=== PATIENT | female | born 1990 | race Caucasian/White ===

== ENCOUNTER 2019-04-03 11:55 | Emergency (ER) | payer SELFPAY ==
[2019-04-03] MEDS ORDERED: THIAMINE HCL 100 MG, MULTIVIT INFUSN,ADULT 1,VIT K 10 ML, FOLIC ACID 5 MG in 0.9 % SODI... IV ONE (12:02)
[2019-04-03] MEDS ORDERED: THIAMINE HCL 200 MG/2 ML VIAL ONE (12:04)
[2019-04-03] MEDS ORDERED: 0.9 % SODIUM CHLORIDE 1,000 ML IV ONE (12:04)
--- NOTE | 2019-04-03 12:06 | ED Physician Documentation ---
General Adult - HISTORIAN Historian: patient, parent - HPI Stated Complaint: passed out Chief Complaint: General Adult Additional Information: Patient presents to ED after passing out and hitting her head on toilet. Patient's boyfriend states they had been drinking a lot most of the night, with last drink around 0300. When patient got up around 1130 she passed out in the bathroom striking her head on the toilet. Patient states she does not remember the incident. Patient was ambulatory after the incident. Onset: hours (2) Severity: mild - ROS CONST: no problems EYES/ENT: none CVS/RESP: none GI/: none MS/SKIN/LYMPH: none NEURO/PSYCH: headache - PAST HX Past History: none Other History: none Surgeries/Procedures: none Allergies/Adverse Reactions: Allergies Allergy/AdvReac Type Severity Reaction Status Date / Time No Known Allergies Allergy Verified 04/03/19 12:42 Home Medications: Ambulatory Orders Medication Instructions Recorded NK 04/03/19 - SOCIAL HX Smoking History: cigarettes Alcohol Use: heavy Drug Use: none - FAMILY HX Family History: No - REVIEWED ASSESSMENTS Nursing Assessment Reviewed: Yes Vitals Reviewed: Yes Progress - EKG/XRAY/CT EKG: NSR Comments: 12[address] elevation ED Results Lab/Radiology - Radiology Radiology Impressions: Report Submission Date: Apr 03, 2019 12:49:10 PM [employer]IONAL PROJECT MANAGER Patient Study Name: ALMA HATFIELD Date: Apr 03, 2019 12:21:20 PM [employer]IONAL PROJECT MANAGER Modality Type: CT\SR Gender: F Description: CT BRAIN W/O CONTRAST : 89 Institution: [facility] Physician: SINTIA ZUNIGA CT BRAIN HISTORY: Fell, hit head, stood up and passed out. TECHNIQUE: Scans through the brain were obtained without contrast. FINDINGS: Bone window settings demonstrate no calvarial abnormality. Paranasal sinuses and mastoid air cells included on the study are normal. There is no evidence of intra-or extra axial mass lesion, midline shift, subdural hematoma, hemorrhage, or focal CVA identified. Lateral ventricles and basilar cisterns have a normal appearance. IMPRESSION: Unremarkable unenhanced head CT. Note: Total DLP 699.01 milligray/cm Electronically signed on Apr 03, 2019 12:49:10 PM REGIONAL PROJECT MANAGER by: Edward [place] - Orders Orders: ED Orders Category Date Time Status CT BRAIN W/O CONTRAST Stat Exams 04/03/19 Ordered ALCOHOL MEDICAL USE ONLY Stat Lab 04/03/19 Ordered CBC/PLATELET/DIFF Routine Lab 04/03/19 Ordered CMP Routine Lab 04/03/19 Ordered SERUM HCG Stat Lab 04/03/19 Ordered UA W/MICRO IF INDICATED Routine Lab 04/03/19 12:03 Ordered UDS [DRUG SCREEN URINE MEDICAL ONLY] Routine Lab 04/03/19 Ordered Thiamine HCl [Vitamin B-1] 100 mg Med 04/03/19 12:02 Ordered Multivit Infusn,Adult 1,Vit K [M.v.i. Adult] 10 ml Folic Acid [Folvite] 5 mg 0.9 % Sodium Chloride [Normal Saline] 1,000 ml IV ONCE EKG WITH COMPARISON Stat Ther 04/03/19 Ordered General Adult Physical Exam - PHYSICAL EXAM GENERAL APPEARANCE: no distress EENT: MAL NECK: normal inspection RESPIRATORY: no resp distress, chest non-tender, breath sounds normal CVS: reg rate & rhythm, heart sounds normal ABDOMEN: soft, normal bowel sounds, non-tender BACK: normal inspection SKIN: warm/dry, normal color EXTREMITIES: non-tender, no edema NEURO: oriented X3, motor nml, sensation nml, mood/affect nml Discharge Clincal Impression: Alcohol intoxication Qualifiers: Complication of substance-induced condition: uncomplicated Qualified Code(s): F10.920 - Alcohol use, unspecified with intoxication, uncomplicated Referrals: Primary Doctor,No [Primary Care Provider] - 2 Days Additional Instructions: 1. Refrain from consuming alcohol 2. Drink plenty of fluids to maintain proper hydration. Avoid caffeine and alcohol 3. Follow up with PCP within 1 week 4. Return to ER for new or worsening symptoms Condition: Stable Disposition: 01 HOME, SELF-CARE Decision to Admit: NO Date of Decison to Admit: 04/03/19 Decision Time: 12:00
[2019-04-03] MEDS ORDERED: MULTIVIT INFUSN,ADULT 1,VIT K 10 ML VIAL IV ONE (12:09)
[2019-04-03] MEDS ORDERED: FOLIC ACID 5 MG/1 ML IV ONE (12:09)
[2019-04-03 12:10] LABS: BASOPHILS % 0.5 % (0.0-1.5); NEUTROPHILS # 4.4 # k/uL (1.4-7.7)
[2019-04-03 12:21] LABS: eGFR (Non-African) > 60
[2019-04-03] MEDS ORDERED: DEXTROSE 5 % AND 0.9 % NACL 1,000 ML IV ONE (13:17)
[2019-04-03 14:40] VITALS: BP 103/70
--- NOTE | 2019-04-05 08:31 | Diagnostic Imaging Report ---
[facility] [address] [facility] [id number] Patient Name: ALMA HATFIELD Referring Physician: SINTIA BRAXTON Date of : 1990 Gender: F Date of Service: 04/03/2019 CT BRAIN HISTORY: Fell, hit head, stood up and passed out. TECHNIQUE: Scans through the brain were obtained without contrast. .FINDINGS: Bone window settings demonstrate no calvarial abnormality. Paranasal sinuses and mastoid air cells included on the study are normal. There is no evidence of intra-or extra axial mass lesion, midline shift, subdural hematoma, hemorrhage, or focal CVA identified. Lateral ventricles and basilar cisterns have a normal appearance. IMPRESSION: Unremarkable unenhanced head CT. Note: Total DLP 699.01 milligray/cm [facility]
== END 2019-04-03 14:30 | disposition home or self-care (01) ==
LOC: ED 11:55
DX: F10.920 Alcohol use, unspecified with intoxication, uncomplicated (principal); Y90.9 Presence of alcohol in blood, level not specified
CPT/HCPCS: 70450; 80053; 80320; 84703; 85025; 93005; 96360; 96361; 99284; J3411; J3490; J7030; J7042; G0480; S1016